=== PATIENT | female | born 1980 | race Caucasian/White ===

== ENCOUNTER 2017-10-09 20:33 | Emergency (ER) | payer MEDICAID ==
[~2017-10-09] VITALS: Ht 167.6 cm; Wt 104.1 kg
[~2017-10-09 20:33] MED LIST: [UNRECOGNIZED DRUG - REMARK]
[2017-10-09 20:46] VITALS: Ht 167.6 cm; Wt 104.1 kg
[2017-10-09 21:49] LABS: BASOPHIL # 0.1 10^3/ul (0.0-0.1); BASOPHILS % 0.6 % (0.0-2.0); EOSINOPHILS # 0.4 10^3/ul (0.0-0.5); EOSINOPHILS % 4.5 % (0.0-7.0); HEMATOCRIT 30.1 % (37.0-47.0); HEMOGLOBIN 9.1 g/dl (12.0-16.0); LYMPHOCYTES # 3.5 10^3/ul (0.8-2.9); LYMPHOCYTES % 44.4 % (15.0-51.0); MEAN CORPUSCULAR HEMOGLOBIN 18.1 pg (29.0-33.0); MEAN CORPUSCULAR HGB CONC 30.2 g/dl (32.0-37.0); MEAN PLATELET VOLUME 9.6 fl (7.4-10.4); MONOCYTE # 0.7 10^3/ul (0.3-0.9); NEUTROPHIL # 3.3 10^3/ul (1.6-7.5); NEUTROPHILS % 41.2 % (39.0-77.0); PLATELET COUNT 425 10^3/UL (140-415); RED BLOOD COUNT 5.02 10^6/ul (4.20-5.40); RED CELL DISTRIBUTION WIDTH 20.2 % (11.5-14.5)
[2017-10-09 22:03] LABS: INR 0.93; PROTIME 12.5 Sec (12.2-14.2)
[2017-10-09 22:04] LABS: PARTIAL THROMBOPLASTIN TIME 30.6 Sec (25.0-35.0)
[2017-10-09 22:05] LABS: ADD UMIC YES; UR ASCORBIC ACID NEGATIVE (NEGATIVE); UR BILIRUBIN (Dip) NEGATIVE (NEGATIVE); UR BLOOD (Dip) NEGATIVE (NEGATIVE); UR CLARITY SLIGHTLY CLOUDY (CLEAR); UR COLOR YELLOW (YELLOW); UR GLUCOSE (Dip) NEGATIVE (NEGATIVE); UR KETONES (Dip) TRACE mg/dL (NEGATIVE); UR LEUKOCYTE ESTERASE (Dip) TRACE Leu/ul (NEGATIVE); UR MUCUS FEW /HPF (NONE SEEN); UR NITRITE (Dip) NEGATIVE (NEGATIVE); UR RBC 0 /HPF (0-5); UR SPECIFIC GRAVITY (Dip) 1.034 (1.003-1.030); UR SQUAMOUS EPITHELIAL CELL FEW /HPF (FEW); UR TOTAL PROTEIN (Dip) 1+ mg/dl (NEGATIVE); UR UROBILINOGEN (Dip) 1+ mg/dL (NEGATIVE)
[2017-10-09 22:06] LABS: ANION GAP 15 (8-16); BLOOD UREA NITROGEN 12 mg/dl (7-20); CALCIUM 9.5 mg/dl (8.4-10.2); CARBON DIOXIDE 28 mmol/L (21-31); CHLORIDE 105 mmol/L (97-110); CREATININE 0.67 mg/dl (0.44-1.00); GLUCOSE 109 mg/dl (70-220); POTASSIUM 3.7 mmol/L (3.5-5.1); SODIUM 144 mmol/L (135-144)
[2017-10-09 22:20] LABS: TROPONIN-I < 0.012 ng/ml (0.00-0.12)
--- NOTE | 2017-10-09 22:29 | RADRPT ---
PROCEDURE: CT brain without contrast. CLINICAL INDICATION: Headache. TECHNIQUE: CT scan of the brain was performed on a multi-detector high-resolution CT scanner. Co ntiguous axial images were obtained from the skull base to the vertex without intravenous contrast. Coronal and sagittal reformatted images were also obtained. Images were reviewed on the PACS works tation. DICOM images are available. One or more of the following dose reduction techniques were used: - Automated exposure control. - Adjustment of the mA and/or kV according to patient size. - Use of iterative reconstruction technique. Exam CTD/vol = 43.48 mGy. Total exam DLP = 720.23 mGy-cm. COMPARISON: None. FINDINGS: The ventricles and cortical sulci are within normal limits for patient's age. There are no areas of abnormal attenuation within the brain parenchyma. There is no mass effect or midline shift. There is no intracranial hemorrhage or abnormal extra-axial collection. The calvarium is intact. There is no evidence of fracture. Visualized paranasal sinuses and mastoid air cells are clear. IMPRESSION: No acute intracranial abnormality identified. .Hwoie Staton MD, MD Date Time Electronically viewed and signed by .Howie Staton MD, MD on 10/09/2017 22:29 .T/
[2017-10-09 22:40] LABS: BARBITURATES Negative (NEGATIVE); BENZODIAZEPINES Negative (NEGATIVE); CANNABINOIDS Negative (NEGATIVE); COCAINE Negative (NEGATIVE); OPIATES Negative (NEGATIVE)
--- NOTE | 2017-10-09 23:08 | RADRPT ---
PROCEDURE: XR Chest. CLINICAL INDICATION: Chest pain TECHNIQUE: AP view of the chest was performed. COMPARISON: None. FINDINGS: The lungs are clear. The lung volumes are normal. The heart size is normal. The osseous structure s are intact. IMPRESSION: Negative examination. RPTAT: QQ .Michael Gomes MD, Date Time Electronically viewed and signed by .Michael Gomes MD, on 10/09/2017 23:07 .M/
[2017-10-09] MEDS ORDERED: KETOROLAC 30 MG INJ IV STA (23:19)
[2017-10-10 00:30] VITALS: BP 118/72; PULSE 76; RESP 18
--- NOTE | 2017-10-10 00:44 | ERD ---
ER Documentation Chief Complaint Chief Complaint right facial droop, right sided numbness since yesterday HPI 37-year-old female presented emergency room for cough, runny nose, generalized body aches, feeling of numbness in her entire right side of her body. She has no weakness. The nurse who did her triage mention that she could see a right- sided facial droop as well. Patient does have a generalized headache that is worse on the right. No history of head trauma. She has never had a stroke. Has some nausea but denies any vomiting. Denies abdominal pain, chest pain and shortness of breath. ROS All systems reviewed and are negative except as per history of present illness. Medications Home Meds Reported Medications [Medications Unknown] No Conflict Check 03/02/13 Allergies Allergies: Coded Allergies: No Known Drug Allergies (Verified Allergy, 01/11/13) PMhx/Soc History of Surgery: Yes (c-sec x 1) Anesthesia Reaction: No Hx Neurological Disorder: No Hx Respiratory Disorders: No Hx Cardiac Disorders: No Hx Psychiatric Problems: No Hx Miscellaneous Medical Probl: Yes (HTN while preg) Hx Alcohol Use: No Hx Substance Use: No Hx Tobacco Use: No Smoking Status: Never smoker Physical Exam Vitals Vital Signs Date Time Temp Pulse Resp B/P Pulse Ox O2 Delivery O2 Flow Rate FiO2 10/09/17 23:40 75 18 111/63 98 Room Air 10/09/17 21:05 72 18 122/71 100 Room Air 10/09/17 20:46 98.3 78 20 132/73 97 Physical Exam Const: [] Mild distress, appears uncomfortable Head: Atraumatic Eyes: Normal Conjunctiva EOMI, PERRLA ENT: Normal External Ears, Nose and Mouth. Moist mucous membranes of the mouth Neck: Full range of motion..~ No meningismus. No JVD Resp: Clear to auscultation bilaterally, coughs on exam Cardio: Regular rate and rhythm, no murmurs Abd: Soft, non tender, non distended. Normal bowel sounds Skin: No petechiae or rashes Back: No midline or flank tenderness Ext: No cyanosis, or edema Neur: Awake and alert and oriented 3, cranial nerves II through XII intact, no slurred speech, finger nose cerebellar is normal, patient has a normal gait. I do not note any facial droop. NIH stroke scale equals 0 Psych: Normal Mood and Affect Result Diagram: 11/26/17 2137 11/26/17 2137 Results 24 hrs Laboratory Tests Test 10/09/17 21:23 10/09/17 21:25 10/09/17 21:37 Bedside Glucose 122mg/dL Urine Color YELLOW Urine Clarity SLIGHTLY CLOUDY Urine pH 5.0 Urine Specific [place] 1.034 Urine Ketones TRACEmg/dL Urine Nitrite NEGATIVEmg/dL Urine Bilirubin NEGATIVEmg/dL Urine Urobilinogen 1+mg/dL Urine Leukocyte Esterase TRACELeu/ul Urine Microscopic RBC 0/HPF Urine Microscopic WBC 1/HPF Urine Squamous Epithelial Cells FEW/HPF Urine Mucus FEW/HPF Urine Hemoglobin NEGATIVEmg/dL Urine Glucose NEGATIVEmg/dL Urine Total Protein 1+mg/dl Urine Opiates Screen Negative Urine Barbiturates Negative Urine Amphetamines Screen Negative Urine Benzodiazepines Screen Negative Urine Cocaine Screen Negative Urine Cannabinoids Negative White Blood Count 8.010^3/ul Red Blood Count 5.0210^6/ul Hemoglobin 9.1g/dl Hematocrit 30.1% Mean Corpuscular Volume 60.0fl Mean Corpuscular Hemoglobin 18.1pg Mean Corpuscular Hemoglobin Concent 30.2g/dl Red Cell Distribution Width 20.2% Platelet Count 35138^3/UL Mean Platelet Volume 9.6fl Neutrophils % 41.2% Lymphocytes % 44.4% Monocytes % 9.0% Eosinophils % 4.5% Basophils % 0.6% Nucleated Red Blood Cells % 0.0/100WBC Neutrophils # 3.310^3/ul Lymphocytes # 3.510^3/ul Monocytes # 0.710^3/ul Eosinophils # 0.410^3/ul Basophils # 0.110^3/ul Nucleated Red Blood Cells # 0.010^3/ul Prothrombin Time 12.5Sec Prothrombin Time Ratio 1.0 INR International Normalized Ratio 0.93 Activated Partial Thromboplast Time 30.6Sec Sodium Level 144mmol/L Potassium Level 3.7mmol/L Chloride Level 105mmol/L Carbon Dioxide Level 28mmol/L Anion Gap 15 Blood Urea Nitrogen 12mg/dl Creatinine 0.67mg/dl Glucose Level 109mg/dl Hemoglobin A1c 5.8% Calcium Level 9.5mg/dl Troponin I < 0.012ng/ml Current Medications Medications (Trade) Dose Ordered Sig/Chetan Route PRN Reason Start Time Stop Time Status Last Admin Dose Admin Ketorolac Tromethamine (Toradol) 30 mg ONCE STAT IV 10/09/17 23:19 10/09/17 23:20 DC 10/09/17 23:47 Procedures/MDM She has had a couple days of flulike symptoms of viral upper respiratory infection. Though she had feeling of numbness along her entire right side of her body and a mild headache at a very low suspicion for CVA or acute subarachnoid hemorrhage. CT is negative and I have not seen any facial droop or any neurological deficits and the patient. She was treated with normal saline as well as Toradol which made her feel much better. She does not believe she has any numbness whatsoever. Nonischemic EKG and no signs of acute coronary syndrome. She feels well and does not want to stay in the hospital. I am going to discharge her with naproxen, iron tablets, Zofran so she can continue to hydrate. Her primary care follow-up in the next 2 days and strict return precautions to the emergency room for any neurological deficits or concerning symptoms. EKG interpretation: Normal sinus rhythm rate 74, normal axis, no ST or T-wave changes concerning for acute ischemia. Normal EKG signal wirer interpretation: Normal sinus rhythm without arrhythmia CT brain interpretation: See no acute process. See no acute or chronic infarct , no hemorrhage, no mass-effect, midline shift, no skull fractures. Chest x-ray interpretation: See no acute process. I see no infiltrates, no pulmonary edema, no pneumothorax, no fractures Departure Diagnosis: Primary Impression: Viral syndrome Additional Impressions: Microcytic anemia Paresthesias Condition: Stable CODYSASCHAMILLERCHASITY HIGGINBOTHAM Oct 10, 2017 00:44
[2017-10-10] MEDS ORDERED: ONDA4TAB11 PO (00:48)
[2017-10-10] MEDS ORDERED: CEPH-443 PO (00:48)
[2017-10-10] MEDS ORDERED: NAPR-688 PO (00:48)
[2017-10-10] MEDS ORDERED: FER325 PO (00:51)
== END 2017-10-10 01:08 | disposition home or self-care (01) ==
LOC: E/R 20:33
DX: B34.9 Viral infection, unspecified (principal); D50.9 Iron deficiency anemia, unspecified; R40.2142 Coma scale, eyes open, spontaneous, at arrival to emergency department; R40.2252 Coma scale, best verbal response, oriented, at arrival to emergency department; R40.2362 Coma scale, best motor response, obeys commands, at arrival to emergency department; R07.9 Chest pain, unspecified
CPT/HCPCS: 36415; 70450; 71010; 80048; 80307; 81001; 82962; 83036; 84484; 85025; 85610; 85730; 93005; 96374; J1885; Z7502; Z7610